=== PATIENT | female | born 1960 | race Caucasian/White ===

== ENCOUNTER 2022-02-08 12:28 | Emergency (ER) | payer OTHER ==
--- OUTSIDE RECORDS SUMMARY | 2022-02-08 12:32 | XMS REPORT | Continuity of Care Document ---
:1960 Author Organization [facility] t Address [address] [place] [address] Care Team Providers Name Role Phone Pcp, Does Not Have A Primary Care Physician KEYLA_Karri Attending Clinician Unavailable Nurse, Sukhwinder Immunization Attending Clinician Unavailable Praneeth Baptiste DO Attending Clinician KEYLA_Karri Admitting Clinician Unavailable Payers Payer Name Policy Type Policy Number Effective Date Expiration Date Vijaya GARCIA (POS) [id number] 2011 00:00:00 Problems This patient has no known problems. Allergies, Adverse Reactions, Alerts This patient has no known allergies or adverse reactions. Social History Social Habit Start Date Stop Date Quantity Comments Source Sex Assigned At [birth year] [facility] 00:00:00 00:00:00 [facility] Smoking Status Start Date Stop Date Source Unknown if ever smoked [facility] Medications This patient has no known medications. Immunizations Ordered Filled Immunization Date Status Comments Sourc e Immunization Name Name SARS-COV-2 COVID-19 2021-11-27 Completed Unive rsity of PFIZER VACCINE 00:00:00 [facility] SARS-COV-2 COVID-19 2021-05-15 Completed Unive rsity of PFIZER VACCINE 00:00:00 [facility] SARS-COV-2 COVID-19 2021-04-24 Completed Unive rsity of PFIZER VACCINE 00:00:00 [facility] Procedures Procedure Date / Time Performed Performing Clinician Gabbie gordon SARS-COV-2 COVID-19 2021-11-27 15:40:31 Doctor Unassigned, No [facility] [place] VACCINE,0.3ML,IM Name [facility] Branch ([facility]) Encounters Start End Encounter Admission Attending Care Care Encounter Source Date/Time Date/Time Type Type Clinicians Facility Department ID 2021-12-27 2021-12-27 Outpatient [facility] [id number] [facility] 03:19:00 03:19:00 _Smith_I [id number] Medic al 2021-12-25 2021-12-25 Outpatient [facility] [id number] [facility] 03:25:00 03:25:00 _Smith_I [id number] Medic al 2021-11-27 2021-11-27 Imm/Inj Nurse, Adc Pob Immunization [facility] [id number] [facility] 09:30:00 09:38:03 [id number] Matt winslow PROFESSIO [id number] Ma dical [address] 2020-11-16 2020-11-16 Outpatient [facility] PRIV [id number] [facility] 10:59:00 10:59:00 _Smith_I [id number] Medic al Results This patient has no known results.
--- NOTE | 2022-02-08 13:17 | RAD REPORT ---
EXAM DESCRIPTION: CT - Head Brain Wo Cont - 02/08/2022 1:05 pm CLINICAL HISTORY: HEADACHE Headache, drowsiness COMPARISON: No comparisons TECHNIQUE: All CT scans are performed using dose optimization technique as appropriate and may inclu de automated exposure control or mA/KV adjustment according to patient size. FINDINGS: No intracranial hemorrhage, hydrocephalus or extra-axial fluid collection.No areas of brai n edema or evidence of midline shift. The paranasal sinuses and mastoids are clear. The calvarium is intact. IMPRESSION: No acute intracranial abnormality.
[2022-02-08] MEDS ORDERED: ACETAMINOPHEN 500 MG TAB ONE (14:38)
--- NOTE | 2022-02-08 16:11 | RAD REPORT ---
EXAM DESCRIPTION: CT - Head angio - 02/08/2022 4:01 pm CLINICAL HISTORY: HEADACHE Headache, drowsiness COMPARISON: Head Brain Wo Cont dated 02/08/2022 TECHNIQUE: CT angiography of the head was performed with MIPs. All CT scans are performed using dose optimization technique as appropriate and may include automated exposure control or mA/KV adjustment according to patient size. FINDINGS: No evidence of aneurysm is detected. No flow-limiting stenosis or vascular malformation id entified. Antegrade flow is seen in the vertebral arteries. The vertebral arteries are codominant. The visualized dural venous sinuses are patent. IMPRESSION: No significant flow abnormality is detected.
--- NOTE | 2022-02-08 16:46 | ER ---
Nurse's Notes [facility] Name: Flavia Tee Age: 61 yrs Sex: Female : 1960 Arrival Date: 02/08/2022 Time: 12:38 Bed 28 Private MD: Diagnosis: Headache;Tension-type headache Presentation: 02/08 12:45 Chief complaint: Patient states: Sharp int. LUCAS for 2 days. No fever. Coronavirus ll1 screen: Vaccine status: Patient reports receiving the 2nd dose of the covid vaccine. Client denies travel out of the [place] in the last 14 days. At this time, the client does not indicate any symptoms associated with coronavirus-19. Ebola Screen: Patient denies travel to an Ebola-affected area in the 21 days before illness onset. Initial Sepsis Screen: Does the patient meet any 2 criteria? No. Patient's initial sepsis screen is negative. Does the patient have a suspected source of infection? Yes: S/S of meningitis or endocarditis. Risk Assessment: Do you want to hurt yourself or someone else? Patient reports no desire to harm self or others. Onset of symptoms was February 07, 2022. 12:45 Method Of Arrival: Ambulatory ll1 12:45 Acuity: TALON 3 ll1 Triage Assessment: 12:45 General: Appears in no apparent distress. Behavior is calm, cooperative, appropriate ll1 for age. Pain: Complains of pain in back of head Quality of pain is described as pulsating, Pain began 2-3 days ago. Neuro: Reports headache. 12:50 Headache History: The patient has had previous headaches and this one is different than lr4 previous episodes. General: Appears in no apparent distress. comfortable, Behavior is calm, cooperative. Pain: Pain currently is 1 out of 10 on a pain scale. Quality of pain is described as dull, pulsating, Pain began gradually, 2-3 days ago. Also complains of no other associated symptoms. Neuro: No deficits noted. Cardiovascular: No deficits noted. Respiratory: No deficits noted. Historical: - Allergies: 12:44 Codeine; ll1 - PMHx: 12:44 neuropathy; colon CA stage 2; ll1 - PSHx: 12:44 piece of colon removed; hysterectomy; ll1 - Immunization history:: Client reports receiving the 2nd dose of the Covid vaccine, Flu vaccine is not up to date. - Social history:: Smoking status: Patient denies any tobacco usage or history of. Screenin:50 Abuse screen: Denies threats or abuse. Nutritional screening: No deficits noted. lr4 Tuberculosis screening: No symptoms or risk factors identified. Fall Risk None identified. Assessment: 12:52 General: Appears in no apparent distress. comfortable, Behavior is calm, cooperative. lr4 Pain: Complains of pain in back of head Pain currently is 1 out of 10 on a pain scale. Quality of pain is described as dull, Pain began 2-3 days ago. Is intermittent. Neuro: No deficits noted. Cardiovascular: No deficits noted. Respiratory: No deficits noted. Musculoskeletal: No deficits noted. Vital Signs: 12:45 BP 144 / 81; Pulse 86; Resp 16; Temp 97.5; Pulse Ox 97% ; Weight 81.65 kg; Height 5 ft. ll1 10 in. (177.80 cm); Pain 1/10; 17:10 BP 139 / 79; Pulse 81; Resp 20; Pulse Ox 99% on R/A; lr4 12:45 Body Mass Index 25.83 (81.65 kg, 177.80 cm) ll1 ED Course: 12:38 Patient arrived in ED. kz 12:46 Triage completed. ll1 12:46 Arm band placed on Patient placed in an exam room, on a stretcher. ll1 12:47 Melody Nix, RN is Primary Nurse. lr4 12:50 Milind Wilson MD is Attending Physician. kdr 12:52 Patient has correct armband on for positive identification. Bed in low position. Call lr4 light in reach. Side rails up X 1. Door closed. Noise minimized. 12:52 No provider procedures requiring assistance completed. lr4 12:56 CT Head Brain wo Cont Sent. lr4 13:05 CT Head Brain wo Cont In Process Unspecified. EDMS 13:59 Patient did not have IV access during this emergency room visit. lr4 16:03 CT Head Angio In Process Unspecified. EDMS 17:10 Patient did not have IV access during this emergency room visit. IV discontinued, lr4 intact, bleeding controlled, No redness/swelling at site. Pressure dressing applied. Administered Medications: 14:24 CANCELLED (Physician Discretion): NS 0.9% 500 ml IV at bolus once ss 14:36 Drug: Tylenol 1000 mg Route: PO; lr4 14:54 Follow up: Response: No adverse reaction; Pain is decreased lr4 15:03 Follow up: Response: Pain is decreased lr4 Outcome: 12:52 Condition: stable lr4 13:58 Discharged to home ambulatory. lr4 13:58 Discharge instructions given to patient, family. 16:45 Discharge ordered by . kdr 17:10 Patient left the ED. lr4 Signatures: Dispatcher [employer] EDMS Milind Wilson MD MD kdr Alberto Silva RN RN ll1 Melody Nix RN RN lr4 Jacquie Vyas Shelby RN ss
--- NOTE | 2022-02-08 16:46 | EDPHYS ---
Physician Documentation [facility] Name: Flavia Tee Age: 61 yrs Sex: Female : 1960 Arrival Date: 02/08/2022 Time: 12:38 Bed 28 Private MD: ED Physician Milind Wilson HPI: 02/08 18:33 This 61 yrs old Female presents to ER via Ambulatory with complaints of Headache. kdr 18:33 The patient complains of pain to the left frontal area and left temporal area. The kdr patient describes the headache as aching, throbbing, waxing and waning. Onset: The symptoms/episode began/occurred suddenly, 2 day(s) ago. Associated signs and symptoms: The patient has no apparent associated signs or symptoms. Severity of symptoms: At its worst the pain was mild, in the emergency department the pain has improved, mildly. Headache History: The patient has had previous headaches and this one is similar to previous episodes. The patient has experienced similar episodes in the past, a few times. The patient has not recently seen a physician. Historical: - Allergies: 12:44 Codeine; ll1 - PMHx: 12:44 neuropathy; colon CA stage 2; ll1 - PSHx: 12:44 piece of colon removed; hysterectomy; ll1 - Immunization history:: Client reports receiving the 2nd dose of the Covid vaccine, Flu vaccine is not up to date. - Social history:: Smoking status: Patient denies any tobacco usage or history of. ROS: 18:33 Constitutional: Negative for fever, chills, and weight loss, Eyes: Negative for injury, kdr pain, redness, and discharge, ENT: Negative for injury, pain, and discharge, Neck: Negative for injury, pain, and swelling, Cardiovascular: Negative for chest pain, palpitations, and edema, Respiratory: Negative for shortness of breath, cough, wheezing, and pleuritic chest pain, Abdomen/GI: Negative for abdominal pain, nausea, vomiting, diarrhea, and constipation, Back: Negative for injury and pain, : Negative for injury, bleeding, discharge, and swelling, MS/Extremity: Negative for injury and deformity, Skin: Negative for injury, rash, and discoloration, Psych: Negative for depression, anxiety, suicide ideation, homicidal ideation, and hallucinations, Allergy/Immunology: Negative for hives, rash, and allergies, Endocrine: Negative for neck swelling, polydipsia, polyuria, polyphagia, and marked weight changes, Hematologic/Lymphatic: Negative for swollen nodes, abnormal bleeding, and unusual bruising. 18:33 Neuro: Positive for headache, Negative for altered mental status, dizziness, gait disturbance, hearing loss, loss of consciousness, numbness, seizure activity, speech changes, syncope, near syncope, tingling, tinnitus, tremor, visual changes, weakness, acute changes. Exam: 18:33 Constitutional: This is a well developed, well nourished patient who is awake, alert, kdr and in no acute distress. Head/Face: Normocephalic, atraumatic. Eyes: Pupils equal round and reactive to light, extra-ocular motions intact. Lids and lashes normal. Conjunctiva and sclera are non-icteric and not injected. Cornea within normal limits. Periorbital areas with no swelling, redness, or edema. Neck: Trachea midline, no thyromegaly or masses palpated, and no cervical lymphadenopathy. Supple, full range of motion without nuchal rigidity, or vertebral point tenderness. No Meningismus. Chest/axilla: Normal chest wall appearance and motion. Nontender with no deformity. No lesions are appreciated. 18:33 Neck: C-spine: vertebral tenderness, is not appreciated, crepitus, is not appreciated, ROM/movement: Meningeal signs: are not present, Kernig's sign is negative, Brudzinski's sign is negative. Vital Signs: 12:45 BP 144 / 81; Pulse 86; Resp 16; Temp 97.5; Pulse Ox 97% ; Weight 81.65 kg; Height 5 ft. ll1 10 in. (177.80 cm); Pain 1/10; 17:10 BP 139 / 79; Pulse 81; Resp 20; Pulse Ox 99% on R/A; lr4 12:45 Body Mass Index 25.83 (81.65 kg, 177.80 cm) ll1 MDM: 16:45 Patient medically screened. kdr 18:33 Data reviewed: vital signs, nurses notes, lab test result(s), radiologic studies. kdr Counseling: I had a detailed discussion with the patient and/or guardian regarding: the historical points, exam findings, and any diagnostic results supporting the discharge/admit diagnosis, lab results, radiology results, the need for outpatient follow up. ED course: Chest mother had of a ruptured cerebral aneurysm. 02/08 12:53 Order name: CT Head Brain wo Cont; Complete Time: 14:23 kdr 02/08 14:30 Order name: CT Head Angio; Complete Time: 16:43 kdr Administered Medications: 14:24 CANCELLED (Physician Discretion): NS 0.9% 500 ml IV at bolus once ss 14:36 Drug: Tylenol 1000 mg Route: PO; lr4 14:54 Follow up: Response: No adverse reaction; Pain is decreased lr4 15:03 Follow up: Response: Pain is decreased lr4 Disposition Summary: 02/08/22 16:45 Discharge Ordered Location: Home kdr Problem: new kdr Symptoms: have improved kdr Condition: Stable kdr Diagnosis - Headache kdr - Tension-type headache kdr Followup: kdr - With: Private Physician - When: 2 - 3 days - Reason: If symptoms return, Further diagnostic work-up, Recheck today's complaints, Continuance of care, Re-evaluation by your physician Discharge Instructions: - Discharge Summary Sheet kdr - General Headache Without Cause kdr - Tension Headache, Adult, Rzzp-ik-Hyns kdr Forms: - Medication Reconciliation Form kdr - Thank You Letter kdr Signatures: Dispatcher [employer] EDMS Milind iWlson MD MD kdr Alberto Silva RN RN ll1 Melody Nix RN RN lr4 Vangie Zimmerman RN ss Corrections: (The following items were deleted from the chart) 14:24 14:24 NS 0.9% 500 ml IV at bolus once ordered. kdr ss
[2022-02-08 18:11] VITALS: TEMP 97.5
[2022-02-08 18:13] VITALS: BP 139/79; O2SAT 99
== END 2022-02-08 17:10 | disposition home or self-care (01) ==
LOC: ER 12:28
DX: G44.209 Tension-type headache, unspecified, not intractable (principal); Z85.038 Personal history of other malignant neoplasm of large intestine; Z88.5 Allergy status to narcotic agent
CPT/HCPCS: 82565; 70450; 70496; 99283; Q9967

== ENCOUNTER 2022-10-05 11:06 | Emergency (ER) | payer OTHER ==
--- OUTSIDE RECORDS SUMMARY | 2022-10-05 11:08 | XMS REPORT | Continuity of Care Document ---
:1960 Author Organization [facility] t Address [address] [place] [address] Care Team Providers Name Role Phone Kevin LEE, Dania Malik Primary Care Physician KEYLA_ELIZABETH_Dylan_I Attending Clinician Unavailable KEYLA_Nathaniel_Yamileth Admitting Clinician Unavailable Payers Payer Name Policy Type Policy Number Effective Date Expiration Date Vijaya GARCIA (POS) [id number] 2011 00:00:00 Problems Condition Condition Condition Status Onset Resolution Last Treating Co mments Source Name Details Category Date Date Treatment Clinician Date Colon Colon Disease Active [facility] cancer cancer 08-07 00:00: [facility]osp[facility] 00 l Family Family Disease Active [facility] history of history of 08-07 colon colon 00:00: Hospita cancer cancer 00 l Allergies, Adverse Reactions, Alerts Allergy Allergy Status Severity Reaction(s) Onset Inactive Treating Comm ents Source Name Type Date Date Clinician Codeine Propensi Active Methodi ty to 08-06 st adverse 00:00: Hospita reaction 00 l s to drug Family History Family Member Diagnosis Comments Start Date Stop Date Source Maternal grandfather Heart failure [facility] Maternal grandfather Diabetes [facility] Maternal grandmother Blood Clots [facility] Maternal uncle Heart failure [facility] Natural mother Ovarian cancer [facility] Other Cancer [facility] Paternal aunt Throat cancer [facility] Paternal aunt Leukemia [facility] Paternal aunt No Known Problems [facility] Paternal grandfather Throat cancer [facility] Paternal grandmother [facility] Paternal uncle No Known Problems [facility] Natural sister Liver failure [facility] Natural sister No Known Problems [facility] Natural sister Other [facility] Natural brother Diabetes [facility] Natural brother Heart failure [facility] Natural brother No Known Problems [facility] Cousin Breast cancer [facility] Natural father Colon cancer [facility] Maternal aunt Heart failure [facility] Social History Social Habit Start Date Stop Date Quantity Comments Source Sex Ass[birth year] At [birth year] [facility] 00:00:00 00:00:00 Smoking Status Start Date Stop Date Source Never smoked tobacco [facility] Medications Ordered Filled Start Stop Current Ordering Indication Dosage Frequency Signature Comments Components Source Medication Medication Date Date Medication? Clinician (SIG) Name Name rosuvastati Yes Method i n (CRESTOR) 07-25 st 40 MG 00:00: Hospita tablet 00 l rosuvastati Yes Method i n (CRESTOR) 07-25 st 40 MG 00:00: Hospita tablet 00 l SYNTHROID Yes 100ug QD Take 100 Met hodi 100 mcg 8-[address] tablet 00:00: mouth once Hospi ta 00 daily. l SYNTHROID Yes 100ug QD Take 100 Met hodi 100 mcg 8-[address] tablet 00:00: mouth once Hospi ta 00 daily. l Procedures This patient has no known procedures. Plan of Care Planned Activity Planned Date Details Comments Source Future Scheduled 2022-09-22 HEPATITIS B VACCINES Met [facility] Test 02:43:47 (1 of 3 - 3-dose series) [code = HEPATITIS B VACCINES (1 of 3 - 3-dose series)] Future Scheduled 2022-09-22 COVID-19 VACCINE (#1) [facility] Test 02:43:47 [code = COVID-19 VACCINE (#1)] Future Scheduled 2022-09-22 Screening for [facility] Test 02:43:47 malignant neoplasm of cervix (procedure) [code = 041937342] Future Scheduled 2022-09-22 BREAST CANCER [facility] Test 02:43:47 SCREENING [code = BREAST CANCER SCREENING] Future Scheduled 2022-09-22 COLONOSCOPY SCREENING [facility] Test 02:43:47 [code = COLONOSCOPY SCREENING] Future Scheduled 2022-09-22 SHINGLES VACCINES (1 Met [facility] Test 02:43:47 of 2) [code = SHINGLES VACCINES (1 of 2)] Future Scheduled 2022-09-22 INFLUENZA VACCINE [facility] Test 02:43:47 [code = INFLUENZA VACCINE] Future Scheduled 2022-07-20 HEPATITIS B VACCINES Met [facility] Test 01:45:25 (1 of 3 - 3-dose series) [code = HEPATITIS B VACCINES (1 of 3 - 3-dose series)] Future Scheduled 2022-07-20 COVID-19 VACCINE (#1) [facility] Test 01:45:25 [code = COVID-19 VACCINE (#1)] Future Scheduled 2022-07-20 Screening for [facility] Test 01:45:25 malignant neoplasm of cervix (procedure) [code = 234382846] Future Scheduled 2022-07-20 BREAST CANCER [facility] Test 01:45:25 SCREENING [code = BREAST CANCER SCREENING] Future Scheduled 2022-07-20 COLONOSCOPY SCREENING [facility] Test 01:45:25 [code = COLONOSCOPY SCREENING] Future Scheduled 2022-07-20 SHINGLES VACCINES (1 Met [facility] Test 01:45:25 of 2) [code = SHINGLES VACCINES (1 of 2)] Future Scheduled 2022-07-20 INFLUENZA VACCINE Method [facility] Test 01:45:25 [code = INFLUENZA VACCINE] Encounters Start End Encounter Admission Attending Care Care Encounter Source Date/Time Date/Time Type Type Clinicians Facility Department ID 2021-12-27 2021-12-27 Outpatient [facility] PRIV [id number] [facility] 03:19:00 03:19:00 _Smith_I [id number] Medic al 2021-12-25 2021-12-25 Outpatient [facility] PR[facility] PRIV [id number] [facility] 03:25:00 03:25:00 _Smith_I [id number] Medic al 2020-11-16 2020-11-16 Outpatient [facility] PR[facility] PRIV [id number] [facility] 10:59:00 10:59:00 _Smith_I [id number] Medic al Results This patient has no known results.
--- NOTE | 2022-10-05 13:08 | RAD REPORT ---
EXAM DESCRIPTION: RAD - Elbow Left 3 View - 10/05/2022 12:52 pm CLINICAL HISTORY: Pain COMPARISON: No comparisons FINDINGS/IMPRESSION: Left elbow fracture which likely involves the lateral humeral condyle and is di splaced. An elbow effusion is present. No dislocation. CT could better assess the position of the fra cture fragments.
[2022-10-05] MEDS ORDERED: ACETAMINOPHEN 325 MG TABLET ONE (13:31)
--- NOTE | 2022-10-05 14:33 | ER ---
Nurse's Notes [facility] Name: Flavia Tee Age: 61 yrs Sex: Female : 1960 Arrival Date: 10/05/2022 Time: 11:09 Bed DIS2 Private MD: Diagnosis: Humeral Fracture Presentation: 10/05 11:51 Chief complaint: Patient states: Tripped over bed and landed on Left elbow; incident vg1 occurred yesterday morning. Left elbow appears to be bruised and swollen. Coronavirus screen: Vaccine status: Patient reports receiving the 2nd dose of the covid vaccine. Client denies travel out of the [place] in the last 14 days. Ebola Screen: Patient negative for fever greater than or equal to 101.5 degrees Fahrenheit, and additional compatible Ebola Virus Disease symptoms. Initial Sepsis Screen: Does the patient meet any 2 criteria? No. Patient's initial sepsis screen is negative. Does the patient have a suspected source of infection? No. Patient's initial sepsis screen is negative. Risk Assessment: Do you want to hurt yourself or someone else? Patient reports no desire to harm self or others. Onset of symptoms was October 04, 2022. 11:51 Method Of Arrival: Ambulatory vg1 11:51 Acuity: TALON 4 vg1 Triage Assessment: 11:58 General: Appears uncomfortable, Behavior is calm, cooperative. Pain: Complains of pain vg1 in Left elbow Pain currently is 6 out of 10 on a pain scale. Pain began 1 day ago. Cardiovascular: Capillary refill < 3 seconds in bilateral fingers Patient's skin is warm and dry. Pulses are palpable in right radial artery and left radial artery. Musculoskeletal: Range of motion: limited in left elbow. Historical: - Allergies: 11:58 Codeine; vg1 - Home Meds: 11:58 Crestor oral [Active]; Synthroid Oral [Active]; vg1 - PMHx: 11:58 colon CA stage 2; neuropathy; vg1 - PSHx: 11:58 hysterectomy; piece of colon removed; vg1 - Immunization history:: Client reports receiving the 2nd dose of the Covid vaccine. - Social history:: Smoking status: Patient denies any tobacco usage or history of. Screenin:44 Abuse screen: Denies threats or abuse. Denies injuries from another. Nutritional ss screening: No deficits noted. Tuberculosis screening: Never had TB. Fall Risk None identified. Assessment: 14:44 Reassessment: Patient appears in no apparent distress at this time. Patient and/or ss family updated on plan of care and expected duration. Pain level reassessed. Patient is alert, oriented x 3, equal unlabored respirations, skin warm/dry/pink. posterior L elbow splint placed. Sling applied. Pt tolerated well. Cardiovascular: Capillary refill < 3 seconds is brisk in bilateral toes Patient's skin is warm and dry. Respiratory: Respiratory effort is even, unlabored. Vital Signs: 11:51 BP 126 / 66; Pulse 78; Resp 16; Temp 98.2; Pulse Ox 97% ; Weight 86.18 kg; Height 5 ft. vg1 10 in. (177.80 cm); Pain 6/10; 11:51 Body Mass Index 27.26 (86.18 kg, 177.80 cm) vg1 ED Course: 11:09 Patient arrived in ED. as 11:58 Triage completed. vg1 11:58 Arm band placed on. vg1 12:00 [place] PA is PHCP. jmm 12:01 Nakul Gonzales MD is Attending Physician. m 12:51 Elbow Left 3 View XRAY In Process Unspecified. EDMS 14:07 Vangie Zimmerman, HUGO is Primary Nurse. ss 14:27 No provider procedures requiring assistance completed. Patient did not have IV access ss during this emergency room visit. Orthoglass splint: posterior elbow splint Sling applied to left arm. 14:31 Ilan Tinoco MD is Referral Physician. [facility] 14:44 Patient has correct armband on for positive identification. ss Administered Medications: 13:32 Drug: Acetaminophen 650 mg Route: PO; ap3 14:27 Follow up: Response: No adverse reaction ss Medication: 14:44 VIS not applicable for this client. ss Outcome: 14:32 Discharge ordered by . [facility] 14:44 Discharged to home ambulatory, with family. ss 14:44 Condition: good 14:44 Discharge instructions given to patient, family, Instructed on discharge instructions, follow up and referral plans. medication usage, Demonstrated understanding of instructions, follow-up care, medications, splint care, Prescriptions given X 1. 14:45 Patient left the ED. ss Signatures: Dispatcher [employer] EDMS Jeb, [place], PA PA jmm Shine, Juhi as Smirch, Vangie, RN RN ss Yeimi Shah, RN RN ap3 Chelsey Singh RN RN vg1
--- NOTE | 2022-10-05 14:33 | EDPHYS ---
Physician Documentation [facility] Name: Flavia Tee Age: 61 yrs Sex: Female : 1960 Arrival Date: 10/05/2022 Time: 11:09 Bed DIS2 Private MD: KVNG Physician Nakul Gonzales HPI: 10/05 12:01 This 61 yrs old Female presents to ER via Ambulatory with complaints of Elbow Injury. jm 12:01 The patient or guardian complains of injury. Onset: The symptoms/episode began/occurred jmm acutely, yesterday. Is a 61-year-old female with a history of colon cancer the presents emerged part with swelling to the left elbow. Patient states she fell last night. Landing on her left side. Denies hitting her head. Patient having pain when moving her left elbow.. Historical: - Allergies: 11:58 Codeine; vg1 - Home Meds: 11:58 Crestor oral [Active]; Synthroid Oral [Active]; vg1 - PMHx: 11:58 colon CA stage 2; neuropathy; vg1 - PSHx: 11:58 hysterectomy; piece of colon removed; vg1 - Immunization history:: Client reports receiving the 2nd dose of the Covid vaccine. - Social history:: Smoking status: Patient denies any tobacco usage or history of. ROS: 12:01 Constitutional: Negative for fever, chills, and weight loss, Cardiovascular: Negative jmm for chest pain, palpitations, and edema, Respiratory: Negative for shortness of breath, cough, wheezing, and pleuritic chest pain. 12:01 MS/extremity: Positive for injury or acute deformity, pain. 12:01 All other systems are negative. Exam: 12:01 Constitutional: This is a well developed, well nourished patient who is awake, alert, jmm and in no acute distress. Head/Face: atraumatic. Eyes: EOMI, no conjunctival erythema appreciated ENT: Moist Mucus Membranes Neck: Trachea midline, Supple Chest/axilla: Normal chest wall appearance and motion. Cardiovascular: Regular rate and rhythm. No edema appreciated Respiratory: Normal respirations, no respiratory distress appreciated Abdomen/GI: Non distended Back: Normal ROM Skin: General appearance color normal 12:01 Musculoskeletal/extremity: Swelling noted to the left elbow, full radial pulse, full citrix consultant strength, painful flexion appreciated, compartments are soft, neurovascular intact. 12:01 Skin: Appearance: Color: normal in color. 12:01 Neuro: Orientation: is normal, Mentation: is normal, Memory: is normal. 12:01 Psych: Behavior/mood is pleasant, cooperative. Vital Signs: 11:51 BP 126 / 66; Pulse 78; Resp 16; Temp 98.2; Pulse Ox 97% ; Weight 86.18 kg; Height 5 ft. vg1 10 in. (177.80 cm); Pain 6/10; 11:51 Body Mass Index 27.26 (86.18 kg, 177.80 cm) vg1 Procedures: 14:30 Splinting: Splint applied to left arm using Left posterior elbow splint. applied by [facility] tech. Examined by me, post splint application: neurovascular intact, 2+ distal pulses palpable, brisk capillary refill noted, Patient tolerated well. MDM: 12:01 Patient medically screened. [facility] 14:30 Data reviewed: vital signs, nurses notes. Counseling: I had a detailed discussion with escobar the patient and/or guardian regarding: the historical points, exam findings, and any diagnostic results supporting the discharge/admit diagnosis, radiology results, the need for outpatient follow up, to return to the emergency department if symptoms worsen or persist or if there are any questions or concerns that arise at home. ED course: I discussed the patient with orthopedics who recommended posterior splint and will follow up.. 10/05 12:01 Order name: Elbow Left 3 View XRAY; Complete Time: 13:12 vg1 10/05 13:40 Order name: Posterior Elbow Splint; Complete Time: 14:27 [facility] Administered Medications: 13:32 Drug: Acetaminophen 650 mg Route: PO; ap3 14:27 Follow up: Response: No adverse reaction ss Disposition Summary: 10/05/22 14:32 Discharge Ordered Location: Home [facility] Condition: Stable [facility] Diagnosis - Humeral Fracture [facility] Followup: [facility] - With: Ilan Tinoco MD - When: 2 - 3 days - Reason: Recheck today's complaints, Continuance of care, Re-evaluation by your physician Discharge Instructions: - Discharge Summary Sheet [facility] - Distal Humerus Elbow Fracture [facility] Forms: - Medication Reconciliation Form [facility] - Thank You Letter [facility] - Antibiotic Education [facility] - Prescription Opioid Use escobar Prescriptions: - orphenadrine citrate 100 mg Oral Tablet Sustained Release - take 1 tablet by ORAL route 2 times per day As needed; 20 tablet; Refills: 0, escobar Product Selection Permitted Addendum: 10/07/2022 13:33 Co-signature as Attending Physician, Nakul Gonzales MD I agree with the assessment and c rae plan of care. Signatures: Dispatcher [employer] EDNakul Cardenas MD MD cha Mickail, Joel, PA PA jmm Prokisch, Amanda, RN RN ap3 Chelsey Singh RN RN vg1 Vangie Zimmerman RN ss
[2022-10-05 14:50] VITALS: BP 126/66; TEMP 98.2; O2SAT 97
== END 2022-10-05 14:45 | disposition home or self-care (01) ==
LOC: ER 11:06
PROC: 2W3BX1Z Immobilization of Left Upper Arm using Splint (ICD-10-PCS; principal; 2022-10-05)
DX: S42.302A Unspecified fracture of shaft of humerus, left arm, initial encounter for closed fracture (principal); Z88.5 Allergy status to narcotic agent
CPT/HCPCS: 99284